=== PATIENT | female | born 1975 | race Two or more races ===

== ENCOUNTER → 2019-05-12 | Outpatient (CLI) | payer BC ==
--- NOTE | 2019-05-29 11:39 | RAD ---
MR#: [id number] Date of Study: 05/12/2019 Ordering Physician: MOLLY HEBERT, Referring Physician: KATIANA MILLER Tech: APPROVED REPORT Test Type: Exercise Stress Nurse/Tech: Maricel Mcnamara R.N. Test Indications: chest pain Cardiac History: asthma, htn, Medications: see ehr Medical History: see ehr Resting ECG: sr Resting Heart Rate: 66 bpm Resting Blood Pressure: 135/84mmHg Pretest Chest Pain: sharp CP L side upper Nurse/Tech Notes 03/31 sharp chest pain, lungs cta, heart tones regular Stress Symptoms while walking pain increased from 6 to 8, POST EXERCISE Reason for Termination: Reached target heart rate Target HR: Yes Max HR: 158 bpm 90% of Maximum Predicted HR: 175 bpm Exercise duration: 6:55 min:sec, 3 Stage Exercise capacity: 10.0METs Max Blood Pressure: 166/76mmHg Blood Pressure response to exercise: Normal blood pressure response during stress. Chest Pain: Yes. Pain resolved back to baseline 03/31 with recovery Arrhythmia: No. ST Change: Yes. ST depression in V2-6 noted during recovery, difficult to assess EKG during exercise due to motion Other Information Quality:Poor Risk Assessment: Low Risk Conclusion 1. Normal resting EKG 2. Average exercise capacity with approximately 10 metabolic equivalents achieved 3. NON-DIAGNOSTIC stress test due to significant motion artifact during the stress test EKG portion. Grossly no obvious evidence of ischemia Recommendations Consider repeat stress testing with imaging for more accurate delineation. Signed by : Avtar Nguyễn, Electronically Approved : 05/29/2019 11:39:18
== END | disposition home or self-care (01) ==
LOC: NM 09:30
PROVIDERS: ATTEND Internal Medicine
DX: I10 Essential (primary) hypertension (principal); I20.9 Angina pectoris, unspecified; J45.909 Unspecified asthma, uncomplicated
CPT/HCPCS: 93017